=== PATIENT | female | born 1965 | race Caucasian/White ===

== ENCOUNTER → 2019-10-11 15:00 | Outpatient (CLI) | payer OTHER, SELFPAY ==
[2019-10-11 17:56] LABS: Absolute Lymphocyte Count 2.25 X10^3/uL (0.83-4.51); Absolute Neutrophil Count 3.5 X10^3/uL (2.0-7.7); Basophil# 0.05 X10^3/uL; Basophil% 0.8 % (0-1); Eosinophils% 3.1 % (0-5); Hematocrit 39.5 % (37-47); Hemoglobin 12.9 g/dL (12.0-15.0); Lymphocyte # 2.25 X10^3/ul (4.0); Lymphocyte % 34.4 % (19-41); Mean Corp Hgb Conc 32.7 g/dL (32-36); Mean Corpuscular Hgb 30.6 pg (27.0-32.0); Mean Corpuscular Volume 93.8 fL (81-99); Mean Platelet Vol. 10.4 fl (6.2-12.0); Monocyte# 0.57 X10^3/uL; Monocyte% 8.7 % (0-10); NRBC Flagged by Analyzer 0 % (0-5); Neutrophil # 3.46 X10^3/uL (2.7-7.7); Neutrophil % 52.8 % (47-70); Platelet Count 260 K/mm3 (150-450); RBC Distribution Width CV 11.9 % (11.6-14.6); RBC Distribution Width SD 40.7 fl (35.1-43.9); Red Blood Count 4.21 M/mm3 (4.2-5.4); White Blood Count 6.5 K/mm3 (4.4-11.0)
[2019-10-11 18:04] LABS: AST(SGOT) 18 U/L (15-37); Alanine Aminotransfer ALT/SGPT 36 U/L (13-56); Albumin, Serum 3.7 g/dL (3.2-5.0); Alkaline Phosphatase 77 U/L (45-117); Anion Gap 4 (5-15); BUN 17 mg/dL (7-18); BUN/Creat Ratio 21.5 RATIO (10-20); Bilirubin, Direct 0.12 mg/dL (0.00-0.30); Calcium,Total 9.6 mg/dL (8.5-10.1); Chloride 104 mmol/L (98-107); Creatinine, Serum 0.79 mg/dL (0.55-1.02); EST Glomerular Filtration Rate 80 mL/min (>60); Est Glom Filt Rate - Afr Amer 97 mL/min (>60); Globulin 3.7 g/dL (2.2-4.2); Glucose 86 mg/dL (74-106); Potassium 3.8 mmol/L (3.5-5.1); Protein, Total 7.4 g/dL (6.4-8.2); Sodium Level 139 mmol/L (136-145)
[2019-10-12 10:48] LABS: Hepatitis B Surface Antibody Non-Reactive; Hepatitis B Surface Antigen Non-Reactive (Nonreactive); Hepatitis C Antibody Non-Reactive (Nonreactive)
[2019-10-15 20:07] LABS: QNTFERON TB Mitogen Value > 10.00 IU/mL (.); QNTFERON TB Nil Value 0.04 IU/mL (.); QNTFERON TB1+ Ag Value 0.07 IU/mL (.); QNTFERON TB2+ Ag Value 0.04 IU/mL (.)
[2019-10-16 05:08] LABS: Hepatitis B Core AB IgM Negative (Negative); QNTIFERON TB Positive Criteria Negative (Negative)
== END ==
PROVIDERS: PCP Internal Medicine; Referring Provider Dermatology; Visit Provider Dermatology
DX: L40.0 Psoriasis vulgaris (principal); Z79.899 Other long term (current) drug therapy
CPT/HCPCS: 36415; 80048; 80076; 85025; 86480; 86705; 86706; 86803; 87340

== ENCOUNTER → 2020-09-02 14:11 | Outpatient (CLI) | payer OTHER, SELFPAY ==
[2020-09-05 03:07] LABS: QNTFERON TB Mitogen Value > 10.00 IU/mL (.); QNTFERON TB Nil Value 0 IU/mL (.); QNTFERON TB1+ Ag Value 0 IU/mL (.); QNTFERON TB2+ Ag Value 0 IU/mL (.)
[2020-09-05 11:03] LABS: QNTIFERON TB Positive Criteria Negative (Negative)
== END ==
PROVIDERS: PCP Internal Medicine; Referring Provider Dermatology; Visit Provider Dermatology
DX: L40.0 Psoriasis vulgaris (principal); L57.0 Actinic keratosis; L91.8 Other hypertrophic disorders of the skin; Z79.899 Other long term (current) drug therapy
CPT/HCPCS: 36415; 86480

== ENCOUNTER 2021-08-17 16:17 | Emergency (ER) | payer OTHER, SELFPAY ==
[2021-08-17 16:19] VITALS: BP 146/86; PULSE 90; RESP 16; TEMP 37.7; O2SAT 99; BMI 25.4
--- NOTE | 2021-08-17 16:38 | NURSING ---
Message left wKhadijah Esposito [facility] testing
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
== END 2021-08-17 18:47 | disposition home or self-care (01) ==
PROVIDERS: Emergency Provider Emergency Medicine; PCP Internal Medicine; Visit Provider Emergency Medicine
DX: S00.03XA Contusion of scalp, initial encounter (principal); S50.02XA Contusion of left elbow, initial encounter; S16.1XXA Strain of muscle, fascia and tendon at neck level, initial encounter; V79.49XA Driver of bus injured in collision with other motor vehicles in traffic accident, initial encounter; Y92.488 Other paved roadways as the place of occurrence of the external cause; Y99.0 Civilian activity done for income or pay; Z87.891 Personal history of nicotine dependence
CPT/HCPCS: 70450; 72040; 99284; A4216

== ENCOUNTER 2021-11-04 12:00 | Outpatient (RCR) | payer OTHER, SELFPAY ==
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
--- NOTE | 2021-09-22 14:24 | HP.PTREVAL ---
RICARDO Mcbride, It has been my pleasure to treat ANSHUL CARLOS over the last 10 visits for cervical strain. Please see the progress note below for an update on the physical therapy plan of care! Subjective: Neck spasms yesterday very bad, possibly due to stress at [employer]. Back has been OK. Spasms were bad Monday night and felt worse with stress Monday. To doctor October 06. Overall LB much better and neck still can hurt badly, up and down. LB does not hinder activities like neck does. Objective/Function: Oswestry score much better. L 50 rotation, 40 degree right rotation, 30 extension. Still very tight in R UT and painful/spasmy. LB moving well and much less complaints of pain. Walking up corey but still slow. UE AROM wFL. Neck is main problem when it spasms.Goals still appropriate as is more therapy if no other medical options. Pt to contact doctor to move appointment up or start process of more therapy approval. Plan Plan: Recommend return to doctor for other options or more therapy for soft tissue work R neck and ROM. Pt to strengthen at home. Gym ex on hold until neck feels better more consistently Balance/Gait/Functional tests - Balance/Special Test Scores Oswestry Neck Score: 18 Dizziness Score: 22 Goals Goal 1:: patient move and trasnfer and walk without gait deformities due to pain Goal Time Frame: 2-4 Weeks Goal Progress: Goal Met Goal 2:: Patient have cervical AROM WFL and without pain, back ROM to be able to stand up straight. Goal Time Frame: 2-4 Weeks Goal Progress: neck not met, approp Goal 3:: I appropriate manaegment of condition Goal Time Frame: 2-4 Weeks Goal Progress: Progressing Goal 4:: Patient ready to return to work Goal Time Frame: 2-4 Weeks Goal Progress: Progressing 2 hours. Anticipated Interventions Patient/Client Instruction: Educate patient on: Condition, Plan of Care For the Purpose of:: To decrease pain, To increase ROM Therapeutic Exercise to Include: Strength training, Postural training, Flexibilty training, Passive ROM, Active ROM, Dynamic Lumbar Stabilization, Scapular Strength/Stabilization For the Purpose of:: To decrease pain, To increase ROM, To improve nutrient delivery to tissue, To improve muscle performance and motor function, To increase tolerance to activity/condition/position Manual Therapy Techniques to Include: Mobilization, Passive ROM, Soft tissue mobilization For the Purpose of:: To increase ROM TENS: Yes Thermo therapy (hot pack): Yes For the Purpose of:: To decrease pain, To decrease swelling/inflammation Please do not hesitate to contact me at [phone] by phone or if you have questions or concerns regarding this new plan of care! Sincerely, Matt Pineda, DPT, OCS, CSCS
--- NOTE | 2021-10-15 07:59 | HP.PTDCS(2) ---
It has been my pleasure to treat ANSHUL CARLOS referred by RICARDO Mcbride, with the diagnosis of Injury of head for a total of 5 visit(s). Discharge Date: 10/15/21 Please see the following information for a summary of their discharge status. Subjective: Wonkiness and concentration problems persist at times when on computer too much or tired. Otherwise has been OK and cannot relate it to any other activity or position changes. % Improvement: 80 Objective/Function/Assessment: No dizzyness with HEP today and balalnce looks good walking in. Patient Goals: Other Other Goals: feel better Goal 1:: Pt feel goofy feeling is 99% better. Goal Progress: Progressing Goal 2:: Pt feels back to normal work including computer time without symptoms in head. Goal Progress: Progressing Goal 3:: DHI score 5 or better Goal Progress: Progressing Plan: d/c, pt doing well with HEp and improving but dizzy/wonky feeling still gets worse when on computer longer periods of time at work or when tired. She does nto relate that feeling back to anything else anymore. If there are questions or concerns regarding this patient's physical therapy, please feel free to call me at [phone]. Thank you for the referral of this patient. Sincerely, Matt Pineda, DPT, OCS, CSCS Balance/Special Test Scores - Balance/Special Test Scores Functional Gait Assessment Score: 28 % Disability: 6.6700 CATSIB Score (Max score 120 seconds): 93
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
== END 2021-11-04 13:51 | disposition home or self-care (01) ==
LOC: PT 12:00
PROVIDERS: PCP Internal Medicine; Referring Provider Physician Assistant Surgical; Visit Provider Physician Assistant Surgical
DX: S09.90XD Unspecified injury of head, subsequent encounter (principal); S16.1XXD Strain of muscle, fascia and tendon at neck level, subsequent encounter; X58.XXXD Exposure to other specified factors, subsequent encounter
CPT/HCPCS: 97014; 97110; 97140; 97161; 97162; 97164; 97530; G0283

== ENCOUNTER → 2022-02-09 | Outpatient (CLI) | payer OTHER, SELFPAY ==
--- NOTE | 2022-02-09 06:58 | MRI_ITS ---
HISTORY: Concussion on 08/17/2021; postconcussive syndrome. TECHNIQUE: Multiplanar and multisequence MR images of the brain were obtained without contrast. 286 images. COMPARISON: CT 08/17/2021. FINDINGS: BRAIN PARENCHYMA: Multiple foci of increased T2 FLAIR signal in the bilateral cerebral white matter. No abnormal focus of restricted diffusion. No acute intracranial hemorrhage identified. CSF SPACES: Cerebral ventricles, cortical sulci, and other extra-axial CSF spaces within normal limits in size. No significant midline shift or other mass effect.No extra-axial fluid collection. VASCULAR SYSTEM: Major intracranial flow voids are maintained. PARANASAL SINUSES AND MASTOID AIR CELLS: No significant air fluid levels. ORBITS: Symmetric contents. MRI/Brain without Contrast IMPRESSION: Chronic white matter changes which can be seen with chronic small vessel ischemic gliosis, other vascular etiologies, or sequela of trauma, nonspecific demyelination, or inflammation. No evidence for acute infarct. Electronically Signed: Jessica Pennington MD at 11:47 EDT ,
== END | disposition home or self-care (01) ==
LOC: MRI 06:58
PROVIDERS: PCP Internal Medicine; Visit Provider Psychiatry & Neurology Neurology
DX: S09.90XA Unspecified injury of head, initial encounter (principal)
CPT/HCPCS: 70551

== ENCOUNTER → 2022-02-25 | Outpatient (CLI) | payer OTHER, SELFPAY ==
[2022-02-25 09:53] LABS: Hematocrit 41.2 % (37-47); Hemoglobin 13.9 g/dL (12.0-15.0); Mean Corp Hgb Conc 33.7 g/dL (32-36); Mean Corpuscular Hgb 30.8 pg (27.0-32.0); Mean Corpuscular Volume 91.4 fL (81-99); Mean Platelet Vol. 10.2 fl (6.2-12.0); Platelet Count 237 K/mm3 (150-450); RBC Distribution Width CV 12.5 % (11.6-14.6); Red Blood Count 4.51 M/mm3 (4.2-5.4); White Blood Count 5.5 K/mm3 (4.4-11.0)
[2022-02-25 10:05] LABS: Vitamin B12 1700 pg/mL (211-911)
[2022-02-25 10:18] LABS: ALB/GLOB Ratio 1.1 RATIO (0.9-2.4); AST(SGOT) 20 U/L (15-37); Alanine Aminotransfer ALT/SGPT 43 U/L (13-56); Albumin, Serum 3.5 g/dL (3.2-5.0); Alkaline Phosphatase 83 U/L (45-117); Anion Gap 3 (5-15); BUN 14 mg/dL (7-18); BUN/Creat Ratio 19.6 RATIO (10-20); Calcium,Total 8.8 mg/dL (8.5-10.1); Chloride 109 mmol/L (98-107); Creatinine, Serum 0.71 mg/dL (0.55-1.02); EST Glomerular Filtration Rate 89 mL/min (>60); Est Glom Filt Rate - Afr Amer 108 mL/min (>60); Globulin 3.3 g/dL (2.2-4.2); Glucose 85 mg/dL (74-106); Potassium 4.3 mmol/L (3.5-5.1); Protein, Total 6.8 g/dL (6.4-8.2); Sodium Level 141 mmol/L (136-145); Thyroid Stim Hormone (TSH) 2.38 uIU/mL (0.358-3.74)
[2022-03-05 18:04] LABS: Vitamin B1, Thiamine 76.8 nmol/L (66.5-200.0)
== END | disposition home or self-care (01) ==
LOC: MTLAB 07:32
PROVIDERS: PCP Internal Medicine; Referring Provider Psychiatry & Neurology Neurology; Visit Provider Psychiatry & Neurology Neurology
DX: S09.90XA Unspecified injury of head, initial encounter (principal)
CPT/HCPCS: 36415; 80053; 82607; 82746; 84425; 84443; 85027

== ENCOUNTER 2022-09-07 08:30 | Outpatient (RCR) | payer OTHER, SELFPAY ==
--- NOTE | 2022-08-09 16:26 | HP.OTEVAL_ITS ---
Patient's Visit Information ANSHUL CARLOS is a 57 year old F, referred to Occupational Therapy by Dr. 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 Date of Evaluation: 08/09/22 Occupational Therapist: Desirae Medina, GRECIAR/Kayy, CHT - Subjective This 57 year old female was seen for OT eval with dx of right CMC primary osteoarthritis, pt states she had issues of OA pain for over two years. pt states she was wearing a brace prior to sx. pt underwent cmc arthroplasty on 07/29/22. pt arrives 1 week and 4 days s/p from right CMC arthroplasty. 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 pt would like to return to her PLOF. - Pain right hand 3 Pain Intensity Range: 0, 3 - ROM Wrist: right 55/35 left 65/60 CMC: right 0 left 20 MP: right 40 left 35 IP: right 40 left 45 Radial Abduction: right 35 left 35 - Strength Estimator And Drafter Supervisor: right NT left 40# Lateral Pinch: right NT left 8# Tripod Pinch: right NT left 6# - Sensation Sensation Comments: denies - Quick DASH-Disab of Arm,Shoulder& Hand Quick DASH Score: 81.6650 - Goals Comment: CMC arthroplasty guidelines Goal:Daily scar massage when approriate: Yes Goal:ROM equal to unaffected hand: Yes Goal:Estimator And Drafter Supervisor/Pinch strength at least 75% of unaffected hand: Yes Goal:No pain with affected hand use: Yes Goal:Full use of affected hand in daily activities including: Yes - Rehabilitation General Assessment: pt s/p 1 week 4 days s/p right CMC arthroplasty- pt demo with newly healing structures and limited ROM and strength due to sx. procedure. Pt is in need of custom orthosis to provide protection and support while soft tissue structures are healing. Pt would benefit from skilled OT services 1-2 x week for 6 -8 weeks to provide guidelines, ROM and strengthening following right CMC arthroplasty to return pt to PLOF. Today therapist pita. custom orthosis to provide protection and support. pt was instructed in skin care and precautions. pt demo understanding and agree to POC. Rehabilitation Potential: Good - Anticipated Interventions A/AAROM/PROM, Strengthening, Scar Care, Triggerpoint Release, Modalities, Orthoses, Joint Protection/Energy Conservation, Ergonomic Education, Neuro Reeducation, Education re assistive Equipment, Education re Diagnosis, Home Program - Visit Plan Frequency: 1-2x /Week Duration: 6 Weeks General Plan: 2weeks s/p custom thumb spica IPJ free. scar care, full finger ROM, full wrist ROM , MP and IPJ motion of thumb, Opposition to small finger while supporting CMC to prevent rocking at base of thumb and hand flat. 4wks s/p PROM cmc motion. 5-6wks pre-pita thumb orthotic daytime use -custom orthosis use and night and with heavy activity until 12 weeks s/p. 6-7wks strengthening. at [address] cool full finger & wrist motion- hand flat and opposition to small finger between DIPJ & PIPJ. Discontinue custom orthosis use at 12 weeks TEXT: Thank you for the opportunity to evaluate your patient. For Medicare and Medicare HMO plans, please review the plan of care and approve it. It will need to be FAXED BACK to us at [phone] for Medicare purposes. Please let me know if there are questions or concerns regarding this plan of care. Physician Signature: Date:
--- NOTE | 2022-08-24 11:36 | HP.OTREVAL ---
Dr. 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 Please see the progress note below for an update on the occupational therapy plan of care! Subjective: pt arrives 3 weeks and 5 days s/p from right CMC arthroplasty. pt painful Objective/Function: right wrist 50/40. right CMC 5*. right MP 30. right IP 45. pt demo opposition to tip of LF. pt continues to have swelling and pain feel this is more related to working 10-12 hour days and being right handed. Plan Frequency: 1-2x /Week Duration: 6 Weeks Plan: cont to progress pt as tolerated Goals - Goals Patient Goals: Use Hand/Wrist/Arm Normally Again, Be More Independent in ADLS Goal:Daily scar massage when approriate: Yes Goal:ROM equal to unaffected hand: Yes Goal:Community Marketing Coordinator/Pinch strength at least 75% of unaffected hand: Yes Goal:No pain with affected hand use: Yes Goal:Full use of affected hand in daily activities including: Yes Anticipated Interventions Anticipated Interventions: A/AAROM/PROM, Strengthening, Scar Care, Triggerpoint Release, Modalities, Orthoses, Joint Protection/Energy Conservation, Ergonomic Education, Neuro Reeducation, Education re assistive Equipment, Education re Diagnosis, Home Program Please do not hesitate to contact me at [phone] by phone or if you have questions or concerns regarding this new plan of care! Sincerely, Desirae Medina, OTR/L, CHT
--- NOTE | 2022-12-02 09:56 | HP.OTDCNRP_ITS ---
Patient Information Patient Information: ANSHUL CARLOS was seen in my office for initial evaluation on 08/09/22. The following Plan of Care was established for this patient: POC Established Plan: will initiate strengthening at week 6 Anticipated Interventions Anticipated Interventions: A/AAROM/PROM, Strengthening, Scar Care, Triggerpoint Release, Modalities, Orthoses, Joint Protection/Energy Conservation, Ergonomic E ducation, Neuro Reeducation, Education re assistive Equipment, Education re Diagnosis and Home Program Last Seen Last Seen: This patient was last seen in our office 09/07/22 . Pertinent comments regarding their Occupational therapy will appear below: Pt was having increase symptoms of swelling and soreness but returned to work at her last visits- pt was to return to Dr. At this time she has not scheduled further apts.julius schuster is d.c at this time. At this point I will be discontinuing this patient from occupational therapy. I would be happy to see this patient again in the future if found appropriate by the physician. Thank you! Desirae Medina, OTR/L, CHT
== END 2022-09-07 19:00 | disposition home or self-care (01) ==
LOC: OT 08:30
PROVIDERS: PCP Internal Medicine; Referring Provider Orthopaedic Surgery; Visit Provider Orthopaedic Surgery
DX: M18.11 Unilateral primary osteoarthritis of first carpometacarpal joint, right hand (principal)
CPT/HCPCS: 97035; 97110; 97140; 97166; 97530; 97760

== ENCOUNTER → 2022-11-10 | Outpatient (CLI) | payer OTHER, SELFPAY ==
--- NOTE | 2022-11-10 16:19 | STRESSREP ---
Stress Test Report Exercise stress test. [57-year-old woman with a history of dyspnea on exertion] Stress protocol: Resting EKG demonstrates sinus bradycardia with a rate of 51 bpm resting blood pressure is 134/60 mmHg. The patient exercised according to the regular Evan protocol for a total duration of 9 minutes attaining a maximum heart rate of 134 bpm which was 83% of maximum predicted heart rate; the maximum workload was 10.1 metabolic equivalents. At rest there were no ST or T wave changes noted to suggest ischemia and at peak exercise upsloping ST changes only were noted which did not meet the criteria for ischemia. No clinical angina was noted the test was terminated due to the target heart rate being achieved/fatigue. The peak blood pressure was 158/78 mmHg. Rate-pressure product was 47695 Conclusion: Exercise stress test with no EKG criteria for ischemia at a high workload..
== END | disposition home or self-care (01) ==
PROVIDERS: PCP Internal Medicine; Referring Provider Nurse Practitioner; Visit Provider Nurse Practitioner
DX: R06.09 Other forms of dyspnea (principal); E78.2 Mixed hyperlipidemia; Z82.41 Family history of sudden cardiac death
CPT/HCPCS: 93017

== ENCOUNTER → 2023-02-23 | Outpatient (CLI) | payer OTHER, SELFPAY ==
[2023-02-25 21:08] LABS: Hepatitis B Core Ab Total Negative (Negative); QNTFERON TB Mitogen Value > 10.00 IU/mL (.); QNTFERON TB Nil Value 0 IU/mL (.); QNTFERON TB1+ Ag Value 0.02 IU/mL (.); QNTFERON TB2+ Ag Value 0.01 IU/mL (.); QNTIFERON TB Positive Criteria Negative (Negative)
== END | disposition home or self-care (01) ==
LOC: MTLAB 11:10
PROVIDERS: PCP Internal Medicine; Referring Provider Dermatology; Visit Provider Dermatology
DX: L82.1 Other seborrheic keratosis (principal); D22.5 Melanocytic nevi of trunk; L81.4 Other melanin hyperpigmentation; Z08 Encounter for follow-up examination after completed treatment for malignant neoplasm; Z85.828 Personal history of other malignant neoplasm of skin; Z71.89 Other specified counseling; L57.8 Other skin changes due to chronic exposure to nonionizing radiation; L57.0 Actinic keratosis; L40.0 Psoriasis vulgaris; D48.5 Neoplasm of uncertain behavior of skin; L81.8 Other specified disorders of pigmentation; Z79.620 Long term (current) use of immunosuppressive biologic
CPT/HCPCS: 36415; 86480; 86704